=== PATIENT | female | born 1965 | race Caucasian/White ===

== ENCOUNTER 2022-07-17 23:51 | Emergency (ER) | payer MEDICARE ==
[2022-07-18 00:28] VITALS: BP 140/73; PULSE 88; RESP 18; TEMP 99.1
[2022-07-18] MEDS ORDERED: HYDROmorphone 1 MG/ML 1 ML SYRINGE IM STA (01:54)
[2022-07-18] MEDS ORDERED: diphenhydrAMINE 25 MG CAP PO STA (03:22)
--- NOTE | 2022-07-18 03:24 | ED ---
Upper Extremity HPI - General Chief Complaint: Extremity Injury, Upper Stated Complaint: rt arm pain from injury Time Seen by Provider: 07/18/22 01:50 Source: patient Mode of arrival: ambulatory Limitations: no limitations - History of Present Illness Initial Comments: Patient is a 56-year-old female presenting with chief complaint of right arm pain after fracture sustained on 07/14. Patient was seen at [facility] [place], she was informed that she had multiple fractures of the right arm, including a displaced proximal humeral fracture, and was instructed to follow up outpatient with orthopedics. Patient ran out of [place] was at home and is complaining of extreme pain. She has had episodes of numbness and tingling as well as swelling. No discoloration of the limb or cold extremity. - Related Data Allergies Allergy/AdvReac Type Severity Reaction Status Date / Time Penicillins Allergy Rash/Hives Verified 07/18/22 00:28 alendronate sodium AdvReac Unknown Verified 07/18/22 00:28 [From Fosamax] Review of Systems ROS Statement: Those systems with pertinent positive or pertinent negative responses have been documented in the HPI. ROS Other: All systems not noted in ROS Statement are negative. Past Medical History Past Medical History: Diabetes Mellitus, Fibromyalgia, Hyperlipidemia, Osteoarthritis (OA) History of Any Multi-Drug Resistant Organisms: MRSA Date of last positivie culture/infection: 2018 MDRO Source:: Toe Past Surgical History: Section, Hysterectomy, Orthopedic Surgery, Tonsillectomy Past Psychological History: ADD/ADHD, Depression Smoking Status: Former smoker Past Alcohol Use History: None Reported Past Drug Use History: None Reported General Exam Limitations: no limitations General appearance: alert, in distress Head exam: Present: atraumatic, normocephalic, normal inspection Eye exam: Present: normal appearance, EOMI. Absent: scleral icterus, periorbital swelling Neck exam: Present: normal inspection Right Upper Arm exam: Present: tenderness, swelling. Absent: full ROM Neuro motor exam: Present: fingers 2-5 abduction intact Neurosensory exam: Present: other (Full sensation of the extremity) Vascular: Present: radial pulse (2+). Absent: vascular compromise Neurological exam: Present: alert, oriented X3, CN II-XII intact Psychiatric exam: Present: normal affect, normal mood Skin exam: Present: warm, dry, intact, normal color. Absent: rash Course Vital Signs 07/18/22 00:24 Temperature 99.1 F Pulse Rate 88 Respiratory 18 Rate Blood Pressure 140/73 O2 Sat by Pulse 100 Oximetry Medical Decision Making - Medical Decision Making Patient is a 56-year-old female presenting with chief complaint of right arm pain. Patient broke her arm on , was instructed to follow up with orthopedics outpatient after being seen at [facility]. Patient has run out of pain medication is complaining of intense pain. On examination radial pulses 2+, full sensation is intact, patient is able to move the fingers, compartments are soft. Patient is given pain medication. My attending spoke with orthopedic on-call who advised the patient to follow-up in the outpatient setting. Patient is sent home with pain medication educated on supportive treatment. Report back to ER if any new or worsening symptoms. Discussed return parameters and answered all questions. I discussed this case with my attending Dr. Lara. Disposition Clinical Impression: Humeral fracture Disposition: HOME SELF-CARE Condition: Good Instructions (If sedation given, give patient instructions): Arm Fracture in Adults (ED), Proximal Humerus Fracture (ED) Additional Instructions: Follow up with orthopedics. Report back to ER with any new or worsening symptoms. Is patient prescribed a controlled substance at d/c from ED?: No Referrals: None,Stated [Primary Care Provider] - 1-2 days Forrest Guzmán DO [Doctor of Osteopathic Medicine] - 1-2 days Time of Disposition: 04:34
[2022-07-18] MEDS ORDERED: MORPHINE SULFATE 4 MG/ML SYRINGE IVP STA (03:55)
[2022-07-18] MEDS ORDERED: fentaNYL (PF) 50 MCG/ML 2 ML AMP IVP STA (03:57)
--- NOTE | 2022-07-18 03:58 | XR ---
EXAMINATION TYPE: XR humerus RT DATE OF EXAM: 07/18/2022 COMPARISON: NONE HISTORY: Pain TECHNIQUE: 4 views FINDINGS: There is comminuted fracture of the neck of the right humerus. Fragments displaced up to 3 cm. There is inferior dislocation of the humeral head. The elbow joint is intact. Scapula is intact. IMPRESSION: Comminuted humeral neck fracture with displacement. Dislocated humeral head.
[2022-07-18] MEDS ORDERED: ACET/COD 300 MG/30 MG STARTER PACK 6 TAB BTL PO STA (04:34)
[2022-07-18] MEDS ORDERED: traMADol 50 MG STARTER PACK 3 TAB BTL PO STA (04:34)
== END 2022-07-18 05:00 | disposition home or self-care (01) ==
LOC: EC 23:51
DX: S42.201A Unspecified fracture of upper end of right humerus, initial encounter for closed fracture (principal); E78.5 Hyperlipidemia, unspecified; E11.9 Type 2 diabetes mellitus without complications; Z87.891 Personal history of nicotine dependence; Z88.0 Allergy status to penicillin; Z88.9 Allergy status to unspecified drugs, medicaments and biological substances; X58.XXXA Exposure to other specified factors, initial encounter
CPT/HCPCS: 73060; 99283; 96372; 96374; J3010; J1170